=== PATIENT | male | born 1970 | race Caucasian/White ===

== ENCOUNTER 2019-05-26 20:26 | Emergency (ER) | payer MEDICAID ==
[~2019-05-26] VITALS: Ht 188 cm; Wt 122.9 kg
--- NOTE | 2019-05-26 20:29 | NUR ---
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
--- NOTE | 2019-05-26 20:40 | NUR ---
[id number]
[2019-05-26 20:44] VITALS: BP 161/99
--- NOTE | 2019-05-26 21:05 | NUR ---
PT HERE FOR WOUND CARE. PT HAD LARGE LEFT THIGH ABCESS. PT HAD I/D AND HAS REMOVED IFEOMA. PT HAD STAPELS REMOVED BY [facility] [employer].
--- NOTE | 2019-05-26 21:28 | NUR ---
Patient/Caregiver given discharge instructions and they have confirmed that they understand the instructions. Patient ambulatory with steady gait.
== END 2019-05-26 21:38 | disposition home or self-care (01) ==
LOC: ED 21:14
DX: S71.111D Laceration without foreign body, right thigh, subsequent encounter (principal); X58.XXXD Exposure to other specified factors, subsequent encounter
CPT/HCPCS: 99283

== ENCOUNTER 2020-09-26 14:15 | Emergency (ER) | payer MEDICAID ==
[~2020-09-26] VITALS: Ht 188 cm; Wt 116.0 kg
[2020-09-26 14:25] VITALS: BP 146/92
--- NOTE | 2020-09-26 15:48 | NUR ---
CALLED MULTIPLE TIMES BY LAB. NO ANSWER. ASSUME LWBS
== END 2020-09-26 15:52 | disposition left against medical advice (07) ==
LOC: ED 15:30
DX: R22.0 Localized swelling, mass and lump, head (principal)
CPT/HCPCS: 99281